=== PATIENT | male | born 1955 | race Caucasian/White ===

== ENCOUNTER 2017-08-08 17:34 | Emergency (ER) | payer BC ==
[~2017-08-08 17:34] MED LIST: ASA CHILDREN'S81 MG PO; COLACE-DPS100 MG PO; FLOMAX DPS0.4 MG PO; GLUCOPHAGE-DPS500 MG PO; LEVOTHYROXINE100 MCG PO; LIPITOR DPS10 MG PO; MAALOX DPS30 ML PO; METOPROLOL TART25 MG PO; MUCINEX600 MG PO; PLAVIX75 MG PO; TYLENOL DPS325 MG PO; VITAMIN D-32000 UNI1 PO; ZESTRIL DPS10 MG PO; ZYRTEC DPS10 MG PO
--- NOTE | 2017-08-12 05:18 | ER ---
ADMIT: 08/08/2017 RM/LOC: ER [facility] MR#: [id number] [id number] YASMEEN KING [facility] [place] [address] Emergency Room Report SEX: M AGE: 61 : 1955 DATE: 08/08/2017 CHIEF COMPLAINT: Abdominal pain. HISTORY OF PRESENT ILLNESS: A 61-year-old male presents to the ER with acute onset abdominal pain this morning. Describes it as sharp and stabbing in the left lower quadrant. He is nauseated. He has vomited 3 to 4 times today. He has had some diarrhea, however, he is on Colace and this is really not new for him. He has a loss of appetite, some low back pain, worse with movement, relieved by nothing. He did have a stroke, was hospitalized on August 01. Continues to have difficulty with speech, however, he has no prolonged deficits. PAST MEDICAL HISTORY: 1. Diabetes. 2. Hypertension. 3. Hypothyroidism. ALLERGIES: TO PENICILLIN AND LACTOSE. COURSE IN THE EMERGENCY ROOM: The patient was seen and examined. GENERAL: Afebrile and nontoxic. He is in mild amount of distress. HEENT: Eyes are equal and reactive. Pharynx is nonerythematous. NECK: Soft, supple. No lymphadenopathy. CHEST: Clear. Breath sounds are equal bilaterally. No wheezes, rhonchi, or rales. HEART: Regular. No murmurs, gallops, or rubs. ABDOMEN: Somewhat distended. He has some left lower quadrant tenderness to palpation. No McBurney's point tenderness SKIN: Warm and dry, intact. EXTREMITIES: Nontender. No pedal edema. NEURO: He is alert and oriented. Cranial nerves are grossly intact. He does have pressured, rambling speech, but there are no acute signs of worsening in his stroke. LABORATORY STUDIES: White count 13.8, hemoglobin 13.5. Chemistries; creatinine 1.5, lipase is 272, AST 29, ALT 47, lactic 2.3. UA shows wbc's 5, [address] abdomen and pelvis with contrast shows a left proximal ureteral stone. While in the department, he did receive a liter of normal saline. He was given morphine and Zofran for pain and nausea control. He is feeling improved. IMPRESSION: 1. Left urolithiasis. 2. History of cerebrovascular disease. ADMIT: 08/08/2017 RM/LOC: ER [facility] MR#: [id number] [id number] YASMEEN KING [address] [place] [address], [place] [address] Emergency Room Report SEX: M AGE: 61 : 1955 3. History of diverticulitis. DISPOSITION: He is discharged home. Script for Percocet 5/325 one to two tabs every 4 to 6 hours as needed for pain #24, four dispensed from our pharmacy this evening. Also Zofran 4 mg ODT one tab every 6 hours as needed for nausea #14, two of these dispensed from us prior to discharge. He is to follow up with Urology next week if not improving. Should call for the appointment. Certainly return with any worsening signs or symptoms, worsening pain, nausea, vomiting, or unable to tolerate p.o. intake. Cautioned not to drive or take extra Tylenol while on the Percocet. He is to increase the fluids. Continue with home medications. Discharged home in stable condition. KM Cadet / Wilber Em MD / ravi JOB #: [id number] CC: Yonas Carlos MD, Attending Physician Garland Leon MD, Family Physician
== END 2017-08-08 21:12 | disposition home or self-care (01) ==
LOC: ER 17:34
DX: N20.2 Calculus of kidney with calculus of ureter (principal); E11.9 Type 2 diabetes mellitus without complications; E03.9 Hypothyroidism, unspecified; I10 Essential (primary) hypertension; Z86.73 Personal history of transient ischemic attack (TIA), and cerebral infarction without residual deficits; Z88.0 Allergy status to penicillin; Z91.011 Allergy to milk products; Z79.01 Long term (current) use of anticoagulants; Z79.84 Long term (current) use of oral hypoglycemic drugs; Z79.899 Other long term (current) drug therapy